=== PATIENT | female | born 1970 | race Caucasian/White ===

== ENCOUNTER 2018-05-03 18:13 | Emergency (ER) | payer BC, MEDICAID ==
[2018-05-03 18:21] VITALS: BMI 38.5
[2018-05-03 18:22] VITALS: BP 152/101; PULSE 66; RESP 17; TEMP 98.2; O2SAT 99
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
== END 2018-05-03 19:23 | disposition home or self-care (01) ==
LOC: C.ER 18:13
DX: H72.92 Unspecified perforation of tympanic membrane, left ear (principal)